=== PATIENT | male | born 1960 | race Caucasian/White ===

== ENCOUNTER → 2021-08-05 | Emergency (ER) | payer OTHER ==
[~2021-08-05] VITALS: Ht 167.6 cm; Wt 88.5 kg
[~2021-08-05] MED LIST: DULERA 100 MCG/13 GM; [UNRECOGNIZED DRUG - OTHER]
== END | disposition left against medical advice (07) ==
LOC: ER 09:38
DX: Z53.21 Procedure and treatment not carried out due to patient leaving prior to being seen by health care provider (principal)